=== PATIENT | male | born 1975 | race Caucasian/White ===

== ENCOUNTER 2017-07-22 21:04 | Emergency (ER) | payer OTHER | END 2017-07-22 23:32 | disposition home or self-care (01) | LOC: ER 21:04 | DX: W18.39XA Other fall on same level, initial encounter (principal); Y93.89 Activity, other specified; Y99.8 Other external cause status; Y92.89 Other specified places as the place of occurrence of the external cause; S42.494A Other nondisplaced fracture of lower end of right humerus, initial encounter for closed fracture | CPT/HCPCS: 29105; 73080; 99284-25 ==